=== PATIENT | male | born 1990 | race Two or more races ===

== ENCOUNTER 2022-10-22 04:15 | Emergency (ER) | payer OTHER ==
[~2022-10-22] VITALS: Ht 190.5 cm; Wt 111.1 kg
[~2022-10-22 04:15] MED LIST: MICARDIS80 MG
[2022-10-22] MEDS ORDERED: CARVEDILOL3.125 M1 PO (04:29)
[2022-10-22] MEDS ORDERED: DICLOFENAC SODI75 MG PO (05:14)
== END 2022-10-22 05:36 | disposition home or self-care (01) ==
LOC: ER 04:15
DX: S05.11XA Contusion of eyeball and orbital tissues, right eye, initial encounter (principal); X58.XXXA Exposure to other specified factors, initial encounter; Y93.67 Activity, basketball; Y92.9 Unspecified place or not applicable; Y99.9 Unspecified external cause status; J32.0 Chronic maxillary sinusitis